=== PATIENT | male | born 2000 | race Caucasian/White ===

== ENCOUNTER 2022-01-07 22:53 | Emergency (ER) | payer OTHER ==
[2022-01-08 00:35] LABS: INFLUENZA A NAA NEGATIVE (NEGATIVE)
[2022-01-08 00:37] LABS: CORONAVIRUS 2019 SARS-COV-2 POSITIVE (NEGATIVE)
[2022-01-08] MEDS ORDERED: PAXLOVID 300-11 EACH PO ×2 (00:57→01:03)
[2022-01-08] MEDS ORDERED: AZITHROMYCIN250 MG PO ×2 (00:57→01:03)
== END 2022-01-08 01:40 | disposition home or self-care (01) ==
LOC: FER 22:53
PROVIDERS: Emergency Medicine
DX: U07.1 COVID-19 (principal); F17.290 Nicotine dependence, other tobacco product, uncomplicated; Z28.310 Unvaccinated for COVID-19; Z98.890 Other specified postprocedural states; Z79.899 Other long term (current) drug therapy
CPT/HCPCS: 99283; Q0162; U0002